=== PATIENT | female | born 1965 | race Caucasian/White ===

== ENCOUNTER → 2017-12-05 | Outpatient (CLI) | payer BC ==
[~2017-12-05] MED LIST: CHN5 PO
--- NOTE | 2017-12-05 10:38 | DIAGNOSTIC IMAGING REPORT ---
MRI THORACIC SPINE WITHOUT CLINICAL HISTORY: PAIN IN THORACIC SPINE PRIOR STUDIES: None TECHNIQUE: MR scanning of the thoracic spine was performed using multiple pulse sequences. No gadolinium was administered. FINDINGS: There are no suspicious areas of marrow replacement. No disc herniations are visualized. There are multilevel degenerative changes with facet joint ligamentous hypertrophy most pronounced at the T10-11, T9-10, T6-7, and T4-5 levels. There is mild spinal canal narrowing at the T10-11 level. The spinal cord is unremarkable. IMPRESSION: 1. No evidence of suspicious marrow replacement 2. No intrinsic cord lesions identified 3. Multilevel degenerative changes with mild spinal canal narrowing T10-11 level. Electronically signed by: Jesse Joe M.D. 12/05/2017 10:36 AM Dictated Date/Time: 12/05/2017 10:32 AM
== END | disposition home or self-care (01) ==
LOC: C.MRIBC 09:46
PROVIDERS: ATTEND Pain Medicine Interventional Pain Medicine
DX: M54.6 Pain in thoracic spine (principal)